=== PATIENT | female | born 1935 | race Caucasian/White ===

== ENCOUNTER 2017-01-15 08:03 | Day surgery (SDC) | payer MEDICARE ==
[2017-01-15] MEDS ORDERED: HYDROmorphone 1 MG/ML 1 ML SYRINGE IVP PRN (08:26)
[2017-01-15] MEDS ORDERED: ALPRAZolam 0.25 MG TAB PO ONE (08:26)
[2017-01-15 08:44] VITALS: RESP 20
[2017-01-15 09:36] LABS: Mean Platelet Volume 8.5
[2017-01-15 09:55] LABS: INR 1.1 (<1.1); Prothrombin Time 11.3 sec (9.0-12.0)
[2017-01-15] MEDS ORDERED: SODIUM CHLORIDE 0.9% 250 ML IV ONE (10:05)
[2017-01-15] MEDS: fentaNYL (PF) 50 MCG/ML 2 ML AMP IV ONE ×2 (10:16→10:57)
[2017-01-15] MEDS ORDERED: LIDOCAINE 2% INJ 20 MG/ML SQ ONE ×2 (10:28)
[2017-01-15 11:24] LABS: Glucose,Whole Blood 243 mg/dL (75-99)
--- NOTE | 2017-01-15 12:04 | IR ---
EXAMINATION TYPE: 3-D imaging guided liver biopsy DATE OF EXAM: 01/15/2017 11:57 AM COMPARISON: NONE HISTORY: Colon and liver masses FINDINGS: Procedure was discussed with the patient, the risks complications, and benefits were discussed. Any q uestions answered. Informed consent was obtained. Patient was placed supine on the fluoroscopic table prepped and draped in the usual sterile fashion. 3-D imaging guided system was used for liver biopsy. Utilizing a 22-gauge Chiba needle 4 passes were made into the liver. Pathology confirmed adequate diony ple. Patient was stable throughout the procedure and stable upon discharge from Department of radiolo gy. All elements of maximal barrier and sterile technique were utilized. Fluoroscopy of 2.1 minute utilized. IMPRESSION: 1. Successful 3-D guided imaging biopsy of the liver.
[2017-01-15 15:29] VITALS: BP 98/52; PULSE 62; TEMP 98.2
== END 2017-01-15 15:15 | disposition home or self-care (01) ==
LOC: RADPROMAIN 08:03
PROVIDERS: ATTEND Internal Medicine Hematology & Oncology
DX: C78.7 Secondary malignant neoplasm of liver and intrahepatic bile duct (principal); C50.412 Malignant neoplasm of upper-outer quadrant of left female breast
CPT/HCPCS: 47000; 76377; 88305; 88173; 85049; 85610; 88342; 88341; 36415; J2001; J3010

== ENCOUNTER 2017-01-16 06:59 | Day surgery (SDC) | payer MEDICARE ==
[2017-01-16] MEDS ORDERED: LACTATED RINGERS 1,000 ML IV ONE (07:06)
[2017-01-16 07:23] VITALS: RESP 16; TEMP 97.9
[2017-01-16 07:28] LABS: Glucose,Whole Blood 197 mg/dL (75-99)
[2017-01-16] MEDS ORDERED: LACTATED RINGERS 1,000 ML IV SCH (07:28)
[2017-01-16] MEDS ORDERED: LIDOCAINE 1% INJ 10MG/ML (20 ML MDV) ONE (07:37)
[2017-01-16] MEDS ORDERED: PROPOFOL 10 MG/ML 20 ML VIAL IV ONE (07:37)
[2017-01-16 08:54] VITALS: PULSE 74
[2017-01-16 09:54] VITALS: BP 104/64
--- NOTE | 2017-01-21 17:03 | P.OP ---
Date of Procedure: 01/21/17 Preoperative Diagnosis: Metastatic colon cancer History of breast cancer Postoperative Diagnosis: Same Procedure(s) Performed: Colonoscopy with biopsy and tattoo using Heather ink Implants: Anesthesia: MAC Surgeon: Carole Mclean Estimated Blood Loss (ml): 5 Pathology: other (Cecal mass) Disposition: PACU Indications for Procedure: 81 years old female with prior history of breast cancer presents with weight loss and loss of appetite. Computed tomography scan showed a large cecal mass and multiple metastatic deposits in the liver which were biopsied. Informed consent obtained and patient elected to undergo colonoscopy with biopsy and Heather Ink tattoo. Informed consent obtained and patient elected to undergo the procedure Operative Findings: 1. Sigmoid diverticulosis 2. Large cecal mass 3. 2 adjacent polyps in ascending colon Description of Procedure: The patient was brought to the endoscopy suite and placed in lateral decubitus position. IV sedation was given as per anesthesia team. Patient was on continuous vitals and pulse oximetry monitoring throughout the procedure. A timeout was performed to verify correct patient and correct procedure. Perianal examination did not show any external hemorrhoids. Digital rectal examination was performed. No masses or gross blood. A well-lubricated Olympus colonoscope was passed per rectally and was gradually advanced . Colon was extremely tortuous and patient was placed in supine position and then pediatric colonoscope was used to maneuver around redundant and tortuous sigmoid colon beyond splenic flexure, transverse colon, hepatic flexure and cecum. There was a large mass noted in the cecum which had bosselated appearance and occupied 80% of the cecum lumen. The ileocecal valve was not visualized . Additional 2 polyps noted 1 cm distal to large cecum mass. Multiple biopsies were taken using cold biopsy forceps. Heather ink was injected at the base of the cecum mass and abscess and polyp. The colonoscope was gradually withdrawn inspecting all the mucosal surfaces. Bowel prep was good. No polyps, masses, AV malformations noted. Sigmoid diverticulosis noted without any evidence of acute diverticulitis. The scope was gradually withdrawn and retroflexed in the rectum . Grade 1 internal hemorrhoids seen. Total withdrawal time was greater than 20 minutes . Patient tolerated the procedure well and was taken to post anesthesia care unit in stable condition. PATHOLOGY: COLON, CECUM, BIOPSY: FRAGMENTS OF ADENOMA.
--- NOTE | 2017-02-18 15:17 | P.GSHP ---
History of Present Illness H&P Date: 01/16/17 Chief Complaint: Metastatic colon cancer 81 years old female presented with weight loss and anemia. Ultrasound and computed tomography scan showed multiple liver masses and also a mass in the cecum. Patient is status post lumpectomy and radiation after left breast cancer surgery in 2016. Patient today presents for colonoscopy with possible biopsy Past Medical History Past Medical History: Cancer, Diabetes Mellitus, GERD/Reflux, Hearing Disorder / Deafness, Hyperlipidemia, Hypertension, Osteoarthritis (OA) Additional Past Medical History / Comment(s): recent dx. breast cancer left breast History of Any Multi-Drug Resistant Organisms: None Reported Past Surgical History: Back Surgery, Coronary Bypass/CABG, Heart Catheterization , Hysterectomy, Joint Replacement, Tonsillectomy Additional Past Surgical History / Comment(s): quad bypass 2006, left knee replaced Past Anesthesia/Blood Transfusion Reactions: No Reported Reaction Past Psychological History: Depression Smoking Status: Former smoker Past Alcohol Use History: None Reported Additional Past Alcohol Use History / Comment(s): quit smoking in the 's, smoked for 15 yrs. Past Drug Use History: None Reported - Past Family History Mother Family Medical History: No Reported History Medications and Allergies Home Medications Medication Instructions Recorded Confirmed Type Metoprolol Tartrate [Lopressor] 25 mg PO DAILY 02/12/16 02/17/17 History PARoxetine [Paxil] 20 mg PO DAILY 02/12/16 02/17/17 History Simvastatin [Zocor] 80 mg PO HS 02/12/16 02/17/17 History Ubidecarenone [Co Q-10] 300 mg PO DAILY 02/12/16 02/17/17 History metFORMIN HCL [Glucophage] 500 mg PO DAILY 02/12/16 02/17/17 History traZODone HCL [Desyrel] 100 mg PO HS 02/12/16 02/17/17 History Anastrozole [Arimidex] 1 mg PO DAILY 01/13/17 02/17/17 History Cetirizine HCl [Zyrtec] 10 mg PO DAILY 01/13/17 02/17/17 History Ranitidine HCl [Zantac] 150 mg PO HS 01/13/17 02/17/17 History Bevacizumab [Avastin] 0 mg IV Q21D 02/17/17 02/17/17 History HYDROcodone/APAP 10-325MG [[place] 1 tab PO Q4HR PRN 02/17/17 02/17/17 History 10-325] Xeloda(Unknown Dose) 1 tab PO BID 02/17/17 History Allergies Allergy/AdvReac Type Severity Reaction Status Date / Time ibuprofen Allergy Anaphylaxis Verified 02/17/17 09:22 Latex, Natural Rubber AdvReac rizzo skin Verified 02/17/17 09:22 Surgical - Exam Vital Signs Temp Pulse Resp BP Pulse Ox 97.9 F 78 16 128/70 96 01/16/17 07:21 01/16/17 07:21 01/16/17 07:21 01/16/17 07:21 01/16/17 07:21 General: Patient is alert and oriented to time, place and person and cooperative with exam. HEENT: No pallor, no icterus, Chest: Bilateral equal breath sounds present. No wheezes, no crackles. Cardiovascular: Regular rate and rhythm. Abdomen: Soft, nontender, nondistended. No right upper quadrant tenderness. Integumentary: Bilateral lower extremity chronic venous dermatitis. No active ulcers or discharge. Neurologic: Cranial nerves II-XII intact. Strength upper and lower extremities 5/5. No focal neurologic deficits. Gait is normal. Assessment and Plan (1) Liver metastasis Status: Acute Plan: 1. 81 years old female presenting with elevated CEA, status post FNA of the liver lesions showing malignancy of colorectal origin 2. Colonoscopy with biopsy. 3. Informed consent obtained and patient elected to undergo colonoscopy with biopsy
== END 2017-01-16 10:25 | disposition home or self-care (01) ==
LOC: ORWHC2ENDO 06:59
PROVIDERS: ATTEND Surgery
DX: D12.0 Benign neoplasm of cecum (principal); K63.5 Polyp of colon; K57.30 Diverticulosis of large intestine without perforation or abscess without bleeding; K64.8 Other hemorrhoids; Q43.8 Other specified congenital malformations of intestine; C18.9 Malignant neoplasm of colon, unspecified; C78.7 Secondary malignant neoplasm of liver and intrahepatic bile duct; Z85.3 Personal history of malignant neoplasm of breast; Z92.3 Personal history of irradiation; E11.9 Type 2 diabetes mellitus without complications; K21.9 Gastro-esophageal reflux disease without esophagitis; H91.90 Unspecified hearing loss, unspecified ear; E78.5 Hyperlipidemia, unspecified; I10 Essential (primary) hypertension; M19.90 Unspecified osteoarthritis, unspecified site; Z95.1 Presence of aortocoronary bypass graft; F32.9 Major depressive disorder, single episode, unspecified; Z79.84 Long term (current) use of oral hypoglycemic drugs; Z79.899 Other long term (current) drug therapy; Z88.6 Allergy status to analgesic agent; Z87.891 Personal history of nicotine dependence
CPT/HCPCS: 88305; 45380; 45381; J2001; J2704; 44404

== ENCOUNTER 2017-02-20 08:52 | Day surgery (SDC) | payer MEDICARE ==
[2017-02-17 10:12] VITALS: BMI 28.3
[~2017-02-20 08:52] MED LIST: DEXAMETHASONE SOD PHOSPHATE 10 MG/ML 1 ML VIAL IV ONE; LACTATED RINGERS 1,000 ML IV SCH; LIDOCAINE 1% 20 ML VIAL (10MG/ML) FOR IV START INTRADERMA PRN; ceFAZolin 2 GM in SODIUM CHLORIDE 0.9% 100 ML IVPB ONE
[2017-02-20 09:32] VITALS: RESP 16; TEMP 97.6
[2017-02-20 09:44] LABS: Glucose,Whole Blood 159 mg/dL (75-99)
[2017-02-20] MEDS ORDERED: fentaNYL (PF) 50 MCG/ML 2 ML AMP IVP ONE ×2 (10:33→10:46)
[2017-02-20] MEDS ORDERED: fentaNYL (PF) 50 MCG/ML 2 ML AMP ONE (10:48)
[2017-02-20] MEDS ORDERED: MIDAZOLAM 2 MG/2 ML VIAL ONE (10:48)
[2017-02-20] MEDS ORDERED: BUPIVACAINE (PF) 0.25% 30 ML VIAL SQ ONE (11:05)
--- NOTE | 2017-02-20 12:03 | FL ---
EXAMINATION TYPE: FL guided central line placemt DATE OF EXAM: 02/20/2017 CLINICAL HISTORY: Port-A-Cath insertion TECHNIQUE: Fluoroscopy. COMPARISON: None. FINDINGS: Fluoroscopic guidance was provided during Port-A-Cath insertion procedure performed by Dr. Mclean. A total of 6 seconds of fluoroscopic time was utilized during the procedure and single in traoperative spot images acquired. Image acquired shows right internal jugular Mediport catheter with tip in SVC. Overlying sternal wires are present. IMPRESSION: As Above.
--- NOTE | 2017-02-20 12:15 | P.OP ---
Date of Procedure: 02/20/17 Preoperative Diagnosis: Metastatic colon cancer History of left breast cancer status post lumpectomy and radiation Postoperative Diagnosis: Same Procedure(s) Performed: Right internal jugular 8-Amharic Mediport placement under fluoroscopic and SonoSite guidance Implants: Power[employer] Ref#[id number] Anesthesia: MAC, local Surgeon: Carole Mclean Pathology: none sent Condition: stable Disposition: PACU Indications for Procedure: 81 years old female presents for Mediport placement for chemotherapy for metastatic colon cancer. Informed consent obtained and patient elected to undergo the procedure Operative Findings: Description of Procedure: The patient was brought to the operating room and placed in supine position with both arms tucked. A footboard was placed. Chlorhexidine was used to prep the neck followed by application of sterile drapes and an Ioban dressing . A timeout was performed to verify correct patient and correct procedure. Patient was confirmed to receive perioperative IV antibiotics and VTE prophylaxis. An ultrasound was performed of the right neck to identify the carotid artery and internal jugular vein. The internal jugular vein was compressible and patent . Photodocumentation was made. Local anesthetic was infiltrated to create a field block. Seldinger technique was used and the internal jugular vein was accessed under direct ultrasound guidance. There was good backflow of dark venous blood. The guidewire was inserted and fluoroscopic images obtained to confirm the tip in SVC. The needle was removed followed by insertion of a dilator peel-away sheath. Local anesthetic was infiltrated along the inferior aspect of the right clavicle. A 2.5 cm skin incision was made and dissection was carried up to the pectoralis major muscle. A pocket was created for the port. The catheter tubing was connected to the port using the conector after flushing both the port and the catheter with normal saline. The tunneling device was connected to the end of the catheter and after placement of the port in the subcutaneous pocket the tunneling device was passed from the lower incision to the counter incision in the neck. The catheter was measured at the junction of SVC and right atrium. The inner cannula of the peel-away sheath was removed and catheter was gradually inserted. The peel-away sheath was gradually removed. Fluoroscopic image confirmed the tip of the catheter at the junction of SVC and right atrium. There was no kink, fold or torsion of the catheter and the port. The Beaver needle was used to access the port and easy backflow was obtained. This was flushed with 10 mL of normal saline and 10 mL of Hep-Lock was inserted. The skin incision was closed in 3 layers using 3-0 Vicryl interrupted stitches and a running suture of 4-0 Monocryl. Counter incision in the neck was also closed using 3-0 Vicryl followed by 4-0 Monocryl. Dermabond skin glue was applied followed by Telfa and Tegaderm dressing. The sponge, instrument and needle count were correct -2 Patient tolerated the procedure well and was taken to post anesthesia care unit in stable condition Final chest x-ray showed the tip of the catheter in SVC and no pneumothorax. Total fluoroscopic time was 6 seconds
[2017-02-20 12:29] LABS: Glucose,Whole Blood 191 mg/dL (75-99)
[2017-02-20] MEDS ORDERED: HYDROmorphone 1 MG/ML 1 ML SYRINGE IVP ONE ×3 (12:33→13:00)
[2017-02-20 13:15] VITALS: PULSE 64
--- NOTE | 2017-02-20 13:39 | XR ---
EXAMINATION TYPE: XR chest 1V confirm line [facility] DATE OF EXAM: 02/20/2017 COMPARISON: NONE HISTORY: Mediport placement. TECHNIQUE: Single AP portable frontal upright view of the chest is obtained. FINDINGS: There is right internal jugular Mediport catheter with tip likely at brachiocephalic conflu ence. Post CABG changes with mediastinal clips and sternal wires is present. Underlying emphysematous change is felt present. There is no focal air space opacity, pleural effusion, or pneumothorax seen. The cardiac silhouette size is enlarged with atherosclerotic thoracic aorta. The osseous structur es are demineralized. IMPRESSION: Right internal jugular Mediport catheter with tip at brachiocephalic confluence, no evid ence of pneumothorax after catheter placement.
[2017-02-20 13:40] VITALS: BP 115/67
== END 2017-02-20 14:22 | disposition home or self-care (01) ==
LOC: OR 08:52
PROVIDERS: ATTEND Surgery
DX: C18.9 Malignant neoplasm of colon, unspecified (principal); C78.7 Secondary malignant neoplasm of liver and intrahepatic bile duct; I25.10 Atherosclerotic heart disease of native coronary artery without angina pectoris; I10 Essential (primary) hypertension; Z95.1 Presence of aortocoronary bypass graft; G47.33 Obstructive sleep apnea (adult) (pediatric); E11.9 Type 2 diabetes mellitus without complications; Z79.84 Long term (current) use of oral hypoglycemic drugs; F32.9 Major depressive disorder, single episode, unspecified; Z85.3 Personal history of malignant neoplasm of breast; Z79.890 Hormone replacement therapy; Z79.899 Other long term (current) drug therapy; Z88.8 Allergy status to other drugs, medicaments and biological substances; Z91.040 Latex allergy status
CPT/HCPCS: 77001; 36561; 76937; C1788; J2250; J1100; J0690; J3010; J1170; J1642

== ENCOUNTER 2017-03-13 13:07 | Emergency (ER) | payer MEDICARE ==
[2017-03-13] MEDS ORDERED: ONDANSETRON 4 MG/2 ML VIAL IVP STA (13:31)
[2017-03-13] MEDS ORDERED: HYDROmorphone 1 MG/ML 1 ML SYRINGE IVP STA (13:31)
[2017-03-13] MEDS ORDERED: SODIUM CHLORIDE 0.9% 500 ML IV STA (13:31)
[2017-03-13] MEDS ORDERED: SODIUM CHLORIDE 0.9% 1,000 ML IV STA (13:31)
--- NOTE | 2017-03-13 13:40 | ED ---
Abdominal Pain HPI - General Chief Complaint: Abdominal Pain Stated Complaint: pain/cancer patient Time Seen by Provider: 03/13/17 13:23 Source: patient, family, RN notes reviewed Mode of arrival: ambulatory Limitations: no limitations - History of Present Illness Initial Comments: This is a 81-year-old female with a history of cecal cancer that is late stage and inoperable who has been getting chemotherapy and was sent to the emergency department from the [facility] center for evaluation of abdominal pain with nausea. She apparently has had had diarrhea and abdominal pain. She received IV hydration statement sent here for any further workup. She has been complaining of some rectal pain. She has had pain medication which does not help the pain is 8/10 severity she states is more in her lower abdomen. She does have a history of sludge in her gallbladder. This was also a concern. MD Complaint: abdominal pain - Related Data Home Medications Medication Instructions Recorded Confirmed Metoprolol Tartrate [Lopressor] 25 mg PO DAILY 02/12/16 03/13/17 PARoxetine [Paxil] 20 mg PO DAILY 02/12/16 03/13/17 Ubidecarenone [Co Q-10] 300 mg PO DAILY 02/12/16 03/13/17 metFORMIN HCL [Glucophage] 500 mg PO DAILY 02/12/16 03/13/17 traZODone HCL [Desyrel] 100 mg PO HS 02/12/16 03/13/17 Anastrozole [Arimidex] 1 mg PO DAILY 01/13/17 03/13/17 Cetirizine HCl [Zyrtec] 10 mg PO DAILY 01/13/17 03/13/17 Ranitidine HCl [Zantac] 150 mg PO HS 01/13/17 03/13/17 HYDROcodone/APAP 10-325MG [[place] 1 tab PO Q4HR PRN 02/17/17 03/13/17 10-325] Xeloda(Unknown Dose) 1 tab PO BID 02/17/17 03/13/17 Dexamethasone [Hexadrol] 4 mg PO BID 03/13/17 03/13/17 Diphenoxylate HCl/Atropine 2 tab PO QID PRN 03/13/17 03/13/17 [Lomotil 2.5-0.025 mg Tablet] Insulin Glargine [Lantus] 5 unit SQ HS 03/13/17 03/13/17 Lidocaine-Prilocaine Cream [[place] 1 applic TOPICAL DAILY PRN 03/13/17 03/13/17 Cream 2.5%/2.5%] fentaNYL 25MCG/HR PATCH [Duragesic 25 mcg TRANSDERM Q48H 03/13/17 03/13/17 25MCG/HR] Allergies Allergy/AdvReac Type Severity Reaction Status Date / Time ibuprofen Allergy Anaphylaxis Verified 03/13/17 14:27 Latex, Natural Rubber AdvReac rizzo skin Verified 03/13/17 14:27 Review of Systems ROS Statement: Those systems with pertinent positive or pertinent negative responses have been documented in the HPI. ROS Other: All systems not noted in ROS Statement are negative. Past Medical History Past Medical History: Cancer, Diabetes Mellitus, GERD/Reflux, Hearing Disorder / Deafness, Hyperlipidemia, Hypertension, Osteoarthritis (OA) Additional Past Medical History / Comment(s): dx. breast cancer left breast, new dx. colon cancer w/liver mets History of Any Multi-Drug Resistant Organisms: None Reported Past Surgical History: Back Surgery, Coronary Bypass/CABG, Heart Catheterization , Hysterectomy, Joint Replacement, Tonsillectomy Additional Past Surgical History / Comment(s): quad bypass 2006, left knee replaced Past Anesthesia/Blood Transfusion Reactions: No Reported Reaction Past Psychological History: Depression Smoking Status: Former smoker Past Alcohol Use History: None Reported Past Drug Use History: None Reported - Past Family History Mother Family Medical History: No Reported History General Exam - General Exam Comments Initial Comments: This is a well-developed well-nourished awake alert oriented 3 female Limitations: no limitations General appearance: alert, in no apparent distress Head exam: Present: atraumatic, normocephalic, normal inspection Eye exam: Present: normal appearance, PERRL, EOMI. Absent: scleral icterus, conjunctival injection, periorbital swelling ENT exam: Present: mucous membranes dry Neck exam: Present: normal inspection. Absent: tenderness, meningismus, lymphadenopathy Respiratory exam: Present: normal lung sounds bilaterally. Absent: respiratory distress, wheezes, rales, rhonchi, stridor Cardiovascular Exam: Present: normal rhythm, bradycardia, normal heart sounds. Absent: systolic murmur, diastolic murmur, rubs, gallop, clicks GI/Abdominal exam: Present: soft, tenderness (Tenderness palpation of the lower abdomen no guarding rebound masses or bruits), normal bowel sounds. Absent: distended, guarding, rebound, rigid Rectal exam: Present: deferred Extremities exam: Present: normal inspection, full ROM, normal capillary refill. Absent: tenderness, pedal edema, joint swelling, calf tenderness Back exam: Present: normal inspection Neurological exam: Present: alert, oriented X3, CN II-XII intact Psychiatric exam: Present: normal affect, normal mood Skin exam: Present: warm, dry, intact, normal color. Absent: rash Course Vital Signs 03/13/17 03/13/17 03/13/17 13:09 14:32 17:06 Temperature 97.3 F L 98.5 F Pulse Rate 51 L 56 L 61 Respiratory 17 16 16 Rate Blood Pressure 125/62 135/60 162/71 O2 Sat by Pulse 98 98 100 Oximetry Medical Decision Making - Medical Decision Making I did discuss the findings with the patient family patient feels much improved and will at to go home she will be discharged she was encouraged to increase oral fluids and calorie intake. She will follow-up with her doctor and return when necessary - Lab Data Result diagrams: 03/13/17 14:15 03/13/17 14:15 Lab Results 03/13/17 03/13/17 03/13/17 Range/Units 14:15 14:15 14:15 WBC 6.6 (3.8-10.6) k/uL RBC 3.49 L (3.80-5.40) m/uL Hgb 9.7 L (11.4-16.0) gm/dL Hct 30.3 L (34.0-46.0) % MCV 87.0 (80.0-100.0) fL MCH 27.8 (25.0-35.0) pg MCHC 32.0 (31.0-37.0) g/dL RDW 29.5 H (11.5-15.5) % Plt Count 330 (150-450) k/uL Neutrophils % 83 % Lymphocytes % 14 % Monocytes % 3 % Eosinophils % 0 % Basophils % 0 % Neutrophils # 5.5 (1.3-7.7) k/uL Lymphocytes # 0.9 L (1.0-4.8) k/uL Monocytes # 0.2 (0-1.0) k/uL Eosinophils # 0.0 (0-0.7) k/uL Basophils # 0.0 (0-0.2) k/uL Hypochromasia Moderate Anisocytosis Marked Microcytosis Slight Macrocytosis Moderate Sodium 138 (137-145) mmol/L Potassium 3.5 (3.5-5.1) mmol/L Chloride 105 (98-107) mmol/L Carbon Dioxide 26 (22-30) mmol/L Anion Gap 7 mmol/L BUN 9 (7-17) mg/dL Creatinine 0.50 L (0.52-1.04) mg/dL Est GFR (MDRD) Af Amer >60 (>60 ml/min/1.73 sqM) Est GFR (MDRD) Non-Af >60 (>60 ml/min/1.73 sqM) Glucose 149 H (74-99) mg/dL Plasma Lactic Acid G[place]ardo (0.7-2.0) mmol/L Calcium 8.1 L (8.4-10.2) mg/dL Total Bilirubin 0.4 (0.2-1.3) mg/dL AST 13 L (14-36) U/L ALT 20 (9-52) U/L Alkaline Phosphatase 127 H (38-126) U/L Total Creatine Kinase <20 L (30-135) U/L CK-MB (CK-2) 0.3 (0.0-2.4) ng/mL CK-MB (CK-2) Rel Index 0.0 Troponin I <0.012 (0.000-0.034) ng/mL Total Protein 4.8 L (6.3-8.2) g/dL Albumin 2.5 L (3.5-5.0) g/dL Amylase <30 L (30-110) U/L Lipase 19 L (23-300) U/L Urine Color Urine Appearance (Clear) Urine pH (5.0-8.0) Ur Specific [place] (1.001-1.035) Urine Protein (Negative) Urine Glucose (UA) (Negative) Urine Ketones (Negative) Urine Blood (Negative) Urine Nitrite (Negative) Urine Bilirubin (Negative) Urine Urobilinogen (<2.0) mg/dL Ur Leukocyte Esterase (Negative) Urine RBC (0-5) /hpf Urine WBC (0-5) /hpf Urine Bacteria (None) /hpf Cellular Casts (0) /lpf Urine Mucus (None) /hpf 03/13/17 03/13/17 Range/Units 14:15 17:02 WBC (3.8-10.6) k/uL RBC (3.80-5.40) m/uL Hgb (11.4-16.0) gm/dL Hct (34.0-46.0) % MCV (80.0-100.0) fL MCH (25.0-35.0) pg MCHC (31.0-37.0) g/dL RDW (11.5-15.5) % Plt Count (150-450) k/uL Neutrophils % % Lymphocytes % % Monocytes % % Eosinophils % % Basophils % % Neutrophils # (1.3-7.7) k/uL Lymphocytes # (1.0-4.8) k/uL Monocytes # (0-1.0) k/uL Eosinophils # (0-0.7) k/uL Basophils # (0-0.2) k/uL Hypochromasia Anisocytosis Microcytosis Macrocytosis Sodium (137-145) mmol/L Potassium (3.5-5.1) mmol/L Chloride (98-107) mmol/L Carbon Dioxide (22-30) mmol/L Anion Gap mmol/L BUN (7-17) mg/dL Creatinine (0.52-1.04) mg/dL Est GFR (MDRD) Af Amer (>60 ml/min/1.73 sqM) Est GFR (MDRD) Non-Af (>60 ml/min/1.73 sqM) Glucose (74-99) mg/dL Plasma Lactic Acid [place] 1.1 (0.7-2.0) mmol/L Calcium (8.4-10.2) mg/dL Total Bilirubin (0.2-1.3) mg/dL AST (14-36) U/L ALT (9-52) U/L Alkaline Phosphatase (38-126) U/L Total Creatine Kinase (30-135) U/L CK-MB (CK-2) (0.0-2.4) ng/mL CK-MB (CK-2) Rel Index Troponin I (0.000-0.034) ng/mL Total Protein (6.3-8.2) g/dL Albumin (3.5-5.0) g/dL Amylase (30-110) U/L Lipase (23-300) U/L Urine Color Yellow Urine Appearance Clear (Clear) Urine pH 5.5 (5.0-8.0) Ur Specific [place] 1.030 (1.001-1.035) Urine Protein 1+ H (Negative) Urine Glucose (UA) 2+ H (Negative) Urine Ketones Negative (Negative) Urine Blood Negative (Negative) Urine Nitrite Negative (Negative) Urine Bilirubin Negative (Negative) Urine Urobilinogen <2.0 (<2.0) mg/dL Ur Leukocyte Esterase Negative (Negative) Urine RBC 1 (0-5) /hpf Urine WBC 2 (0-5) /hpf Urine Bacteria Rare H (None) /hpf Cellular Casts 1 (0) /lpf Urine Mucus Rare H (None) /hpf - Radiology Data Radiology results: report reviewed (I did review the imaging and reports including CAT scan there appears be nothing new as far as pathology no evidence of any obstruction she does have cecal mass with evidence of metastatic disease to the liver which is known by the family and patient.), image reviewed Disposition Clinical Impression: Diarrhea, Spastic intestine, Dehydration, Cecal cancer Disposition: HOME SELF-CARE Condition: Good Instructions: Dehydration (ED) Referrals: Alex Montgomery MD [Primary Care Provider] - 1-2 days
[2017-03-13 14:34] VITALS: RESP 16
[2017-03-13 14:41] LABS: Anisocytosis Marked; Basophils % (A) 0 %; CH 27.2; CHCM 30.9; Eosinophils % (A) 0 %; HCT 30.3 % (34.0-46.0); HDW 3.21; HGB 9.7 gm/dL (11.4-16.0); Hypochromasia Moderate; Luc # (Auto) 0.04; Luc % (Auto) 1; Lymphocytes # (A) 0.9 k/uL (1.0-4.8); Lymphocytes % (A) 14 %; MCH 27.8 pg (25.0-35.0); Macrocytosis Moderate; Mean Platelet Volume 7.3; Microcytosis Slight; Monocytes # (A) 0.2 k/uL (0-1.0); Monocytes % (A) 3 %; Neutrophils # (A) 5.5 k/uL (1.3-7.7); Neutrophils % (A) 83 %; RBC 3.49 m/uL (3.80-5.40); WBC 6.6 k/uL (3.8-10.6); WBC (Perox) 6.73
[2017-03-13 14:42] LABS: ALT 20 U/L (9-52); AST 13 U/L (14-36); Alkaline Phosphatase 127 U/L (38-126); Amylase <30 U/L (30-110); Anion Gap 7 mmol/L; Blood Urea Nitrogen 9 mg/dL (7-17); Calcium 8.1 mg/dL (8.4-10.2); Carbon Dioxide 26 mmol/L (22-30); Chloride 105 mmol/L (98-107); Glucose 149 mg/dL (74-99); Non-African American GFR(MDRD) >60 (>60 ml/min/1.73 sqM); Potassium 3.5 mmol/L (3.5-5.1); Sodium 138 mmol/L (137-145); Total Bilirubin 0.4 mg/dL (0.2-1.3); Total Protein 4.8 g/dL (6.3-8.2)
[2017-03-13 14:43] LABS: RDW 29.5 % (11.5-15.5)
--- NOTE | 2017-03-13 14:50 | XR ---
EXAMINATION TYPE: XR KUB DATE OF EXAM: 03/13/2017 CLINICAL DATA: 81 year-old female with abdominal pain, [facility] COMPARISON: None FINDINGS: Retained epicardial pacer leads are present. Surgical clips projecting over the left base. No evidence for free intraperitoneal air. A few small air-fluid levels are noted within the right hemicolon. Hepatic flexure appears mildly dil ated at 7.2 cm. No dilated small bowel loops. No significant stool burden. No suspicious calcification seen. IMPRESSION: 1. Overall nonobstructive bowel gas pattern. No free air. 2. Dilated colon at the level of the hepatic flexure and some tiny air-fluid levels. Correlate for po ssible ileus. Follow-up may be helpful.
[2017-03-13 14:58] LABS: Creatine Kinase <20 U/L (30-135)
[2017-03-13 15:11] LABS: Creatine Kinase MB 0.3 ng/mL (0.0-2.4); Troponin I <0.012 ng/mL (0.000-0.034)
[2017-03-13] MEDS ORDERED: RX INFO: IV CONTRAST WAS GIVEN 1 EACH MISC MISCELLANE PRN (15:51)
[2017-03-13 17:14] LABS: Appearance,Urine Clear (Clear); Bacteria,Urine Rare /hpf; Bilirubin,Urine Negative (Negative); Glucose,Urine (UA) 2+ (Negative); Ketones,Urine Negative (Negative); Leukocyte Esterase,Urine Negative (Negative); Mucus,Urine Rare /hpf; Nitrite,Urine Negative (Negative); PH, Urine 5.5 (5.0-8.0); Particle Count 2522; Protein,Urine 1+ (Negative); RBC,Urine 1 /hpf (0-5); UA Billing (MACRO vs. MICRO) MICRO; Urobilinogen,Urine <2.0 mg/dL (<2.0); WBC,Urine 2 /hpf (0-5)
--- NOTE | 2017-03-13 17:22 | CT ---
EXAMINATION TYPE: CT abdomen pelvis w con DATE OF EXAM: 03/13/2017 COMPARISON: Outside CT dated February 03, 2017 HISTORY: Patient complains of generalized abdominal pain, dysuria, and diarrhea. CT DLP: 623.1 mGycm. Automated exposure control for dose reduction was used. TECHNIQUE: Helical acquisition of images was performed from the lung bases through the pelvis. CONTRAST: Performed without Oral Contrast and with IV Contrast, patient injected with 100 mL of Omnip aque 300. FINDINGS: The prior CT scan from February 03, 2017 was obtained without intravenous contrast, but with oral contrast . LUNG BASES: No significant pulmonary or pleural abnormality is appreciated. Coronary calcifications a nd a prominent mitral valve plane cortical calcifications redemonstrated. LIVER/GB: There is redemonstration of multifocal hypodense lesions throughout the left and right hepa tic lobes, compatible with metastatic neoplasm. There is no biliary tree dilation. The portal venous system is widely patent. HOLLOW VISCERA: There is no bowel obstruction. No pneumatosis or pneumoperitoneum. There is indistinc tness in the cecum/ascending colon presently, there was evidence of a cecal mass on the prior study w hich was obtained with oral contrast. There is a descending colon lymph nodes geographically, consist ent with metastatic. There is no bowel obstruction. PERITONEAL CAVITY: There are no abnormal fluid collections. PANCREAS: No significant abnormality is seen.No pancreatic ductal dilation. SPLEEN: No significant abnormality is seen. ADRENALS: No significant abnormality is seen. KIDNEYS: No urinary tract obstruction. Multifocal simple renal cysts redemonstrated. REPRODUCTIVE ORGANS: No significant abnormality is seen URINARY BLADDER: No significant abnormality is seen. PELVIC ADENOPATHY: None visualized. OSSEOUS STRUCTURES: No significant abnormality is seen. VASCULATURE: Sclerotic changes throughout the arterial anatomy. Venous structures unremarkable. IMPRESSION: 1. LARGE MULTIFOCAL RIGHT AND LEFT HEPATIC METASTATIC NEOPLASM. 2. EVIDENT PERICECAL MASS. 3. THE COMPARISON CT EXTENDS HIGH ENOUGH TO SHOW A RETROAREOLAR 3 CM ILL-DEFINED LEFT BREAST MASS.
[2017-03-13 18:11] VITALS: BP 149/67; PULSE 64; TEMP 97.4
== END 2017-03-13 18:27 | disposition home or self-care (01) ==
LOC: EC 13:07
DX: C18.0 Malignant neoplasm of cecum (principal); C78.7 Secondary malignant neoplasm of liver and intrahepatic bile duct; K58.0 Irritable bowel syndrome with diarrhea; E86.0 Dehydration; R00.1 Bradycardia, unspecified; R11.0 Nausea; I10 Essential (primary) hypertension; E11.9 Type 2 diabetes mellitus without complications; K21.9 Gastro-esophageal reflux disease without esophagitis; F32.9 Major depressive disorder, single episode, unspecified; Z87.891 Personal history of nicotine dependence; Z79.4 Long term (current) use of insulin; Z79.84 Long term (current) use of oral hypoglycemic drugs; Z79.899 Other long term (current) drug therapy; Z88.6 Allergy status to analgesic agent; Z91.040 Latex allergy status; Z85.3 Personal history of malignant neoplasm of breast
CPT/HCPCS: 36415; 80053; 82150; 82550; 82553; 83605; 83690; 84484; 85025; 81001; 74000; 74177; 99284; 96374; 96375 ×2; 96361 ×4; J2405; J1170; Q9967; J1642

== ENCOUNTER 2017-03-19 19:28 | Inpatient (IN) | payer MEDICARE ==
[2017-03-19] MEDS ORDERED: FAMOTIDINE 20 MG/2 ML VIAL IV STA (19:59)
[2017-03-19] MEDS ORDERED: SODIUM CHLORIDE 0.9% 1,000 ML IV STA (19:59)
[2017-03-19] MEDS ORDERED: HYDROmorphone 1 MG/ML 1 ML SYRINGE IVP STA ×2 (19:59→22:03)
--- NOTE | 2017-03-19 20:02 | ED ---
General Adult HPI - General Chief complaint: Recheck/Abnormal Lab/Rx Stated complaint: pain/cancer patient Time Seen by Provider: 03/19/17 19:46 Source: patient, family, RN notes reviewed Mode of arrival: wheelchair Limitations: no limitations - History of Present Illness Initial comments: 81-year-old female presents to the emergency department with a chief complaint of increased pain. Patient suffers from rectal cancer and this is stage IV. Patient takes a fentanyl patch and Dilaudid at home for pain her last visit has not been helping. He see her pain has slowly been worsening throughout this period of time and she recently was put on Dilaudid yesterday to help with her pain. She states that it is the pain that she has all the time she is to pain medication is not left finger at this time. She states she is not eating or drinking much today with this because the pain always makes her nauseous. Patient states she just needs something for her pain and some hydration. Patient denies any fever chills with this. Patient denies any other symptoms at this time. Patient denies any recent fever, chills, shortness of breath, chest pain, back pain, nausea vomiting, numbness or tingling, dysuria or hematuria, constipation or diarrhea, headaches or visual changes, or any other current symptoms. - Related Data Home Medications Medication Instructions Recorded Confirmed Metoprolol Tartrate [Lopressor] 25 mg PO DAILY 02/12/16 03/19/17 PARoxetine [Paxil] 20 mg PO HS 02/12/16 03/19/17 traZODone HCL [Desyrel] 100 mg PO HS 02/12/16 03/19/17 Anastrozole [Arimidex] 1 mg PO DAILY 01/13/17 03/19/17 Cetirizine HCl [Zyrtec] 10 mg PO DAILY 01/13/17 03/19/17 Ranitidine HCl [Zantac] 150 mg PO HS 01/13/17 03/19/17 Dexamethasone [Hexadrol] See Taper PO DAILY 03/13/17 03/19/17 Diphenoxylate HCl/Atropine 2 tab PO QID PRN 03/13/17 03/19/17 [Lomotil 2.5-0.025 mg Tablet] Insulin Glargine [Lantus] 5 unit SQ HS 03/13/17 03/19/17 Lidocaine-Prilocaine Cream [Emla 1 applic TOPICAL DAILY PRN 03/13/17 03/19/17 Cream 2.5%/2.5%] fentaNYL 25MCG/HR PATCH [Duragesic 25 mcg TRANSDERM Q48H 03/13/17 03/19/17 25MCG/HR] HYDROmorphone [Dilaudid] 1 tab PO Q3HR PRN 03/19/17 03/19/17 Allergies Allergy/AdvReac Type Severity Reaction Status Date / Time ibuprofen Allergy Anaphylaxis Verified 03/19/17 20:58 Latex, Natural Rubber AdvReac rizzo skin Verified 03/19/17 20:58 Review of Systems ROS Statement: Those systems with pertinent positive or pertinent negative responses have been documented in the HPI. ROS Other: All systems not noted in ROS Statement are negative. Past Medical History Past Medical History: Cancer, Diabetes Mellitus, GERD/Reflux, Hearing Disorder / Deafness, Hyperlipidemia, Hypertension, Osteoarthritis (OA) Additional Past Medical History / Comment(s): dx. breast cancer left breast, new dx. colon cancer w/liver mets History of Any Multi-Drug Resistant Organisms: None Reported Past Surgical History: Back Surgery, Coronary Bypass/CABG, Heart Catheterization , Hysterectomy, Joint Replacement, Tonsillectomy Additional Past Surgical History / Comment(s): quad bypass 2006, left knee replaced Past Anesthesia/Blood Transfusion Reactions: No Reported Reaction Past Psychological History: Depression Smoking Status: Former smoker Past Alcohol Use History: None Reported Past Drug Use History: None Reported - Past Family History Mother Family Medical History: No Reported History General Exam - General Exam Comments Initial Comments: General: The patient is awake and alert, in no distress, and does not appear acutely ill. Eye: Pupils are equal, round and reactive to light, extra-ocular movements are intact; there is normal conjunctiva bilaterally. No signs of icterus. Ears, nose, mouth and throat: There are moist mucous membranes. Neck: The neck is supple, there is no tenderness. Cardiovascular: There is a regular rate and rhythm. No murmur, rub or gallop is appreciated. Respiratory: Lungs are clear to auscultation, respirations are non-labored, breath sounds are equal. No wheezes, stridor, rales, or rhonchi. Gastrointestinal: Soft, non-distended, non-tender abdomen without masses or organomegaly noted. There is no rebound or guarding present. No CVA tenderness. Bowel sounds are unremarkable. Back: There is no tenderness to palpation in the midline. There is no obvious deformity. No rashes noted. Musculoskeletal: Normal ROM, no tenderness, There is no pedal edema. There is no calf tenderness or swelling. Sensation intact. Pulses equal bilaterally 2+. Neurological: CN II-XII intact, There are no obvious motor or sensory deficits. Coordination appears grossly intact. Speech is normal. Skin: Skin is warm and dry and no rashes or lesions are noted. Psychiatric: Cooperative, appropriate mood & affect, normal judgment. Limitations: no limitations Course Vital Signs 03/19/17 03/19/17 19:32 22:03 Temperature 97.1 F L 97.7 F Pulse Rate 52 L 53 L Respiratory 18 16 Rate Blood Pressure 110/55 132/60 O2 Sat by Pulse 97 96 Oximetry Medical Decision Making - Medical Decision Making 81-year-old female presents for increased abdominal pain. She does suffer from rectal cancer and states is exactly like her normal pain.At this time lab work is reviewed. Patient has had minimal improvement with the Dilaudid we will give her another dose. This time we discussed case with Dr. Cochran with like the patient admitted. This time we will admit to Dr. Sher's group who is covering with Dr. garcia and consult follow-up. Patient and family and given the plan. - Lab Data Result diagrams: 03/19/17 20:25 03/19/17 20:25 Lab Results 03/19/17 03/19/17 03/19/17 Range/Units 20:25 20:25 21:30 WBC 6.0 (3.8-10.6) k/uL RBC 4.33 (3.80-5.40) m/uL Hgb 12.6 (11.4-16.0) gm/dL Hct 39.6 (34.0-46.0) % MCV 91.4 (80.0-100.0) fL MCH 29.1 (25.0-35.0) pg MCHC 31.8 (31.0-37.0) g/dL RDW 30.2 H (11.5-15.5) % Plt Count 274 (150-450) k/uL Neutrophils % 89 % Lymphocytes % 9 % Monocytes % 2 % Eosinophils % 0 % Basophils % 0 % Neutrophils # 5.4 (1.3-7.7) k/uL Lymphocytes # 0.5 L (1.0-4.8) k/uL Monocytes # 0.1 (0-1.0) k/uL Eosinophils # 0.0 (0-0.7) k/uL Basophils # 0.0 (0-0.2) k/uL Hypochromasia Slight Anisocytosis Marked Microcytosis Slight Macrocytosis Moderate Sodium 134 L (137-145) mmol/L Potassium 3.8 (3.5-5.1) mmol/L Chloride 101 (98-107) mmol/L Carbon Dioxide 28 (22-30) mmol/L Anion Gap 5 mmol/L BUN 20 H (7-17) mg/dL Creatinine 0.71 (0.52-1.04) mg/dL Est GFR (MDRD) Af Amer >60 (>60 ml/min/1.73 sqM) Est GFR (MDRD) Non-Af >60 (>60 ml/min/1.73 sqM) Glucose 221 H (74-99) mg/dL Calcium 7.9 L (8.4-10.2) mg/dL Phosphorus 3.7 (2.5-4.5) mg/dL Magnesium 1.8 (1.6-2.3) mg/dL Total Bilirubin 0.7 (0.2-1.3) mg/dL AST 19 (14-36) U/L ALT 30 (9-52) U/L Alkaline Phosphatase 126 (38-126) U/L Total Protein 4.4 L (6.3-8.2) g/dL Albumin 2.4 L (3.5-5.0) g/dL Urine Color Yellow Urine Appearance Clear (Clear) Urine pH 6.0 (5.0-8.0) Ur Specific [place] 1.017 (1.001-1.035) Urine Protein Negative (Negative) Urine Glucose (UA) 1+ H (Negative) Urine Ketones Negative (Negative) Urine Blood Negative (Negative) Urine Nitrite Negative (Negative) Urine Bilirubin Negative (Negative) Urine Urobilinogen <2.0 (<2.0) mg/dL Ur Leukocyte Esterase Small H (Negative) Urine RBC 1 (0-5) /hpf Urine WBC 4 (0-5) /hpf Ur Squamous Epith Cells <1 (0-4) /hpf Hyaline Casts 4 H (0-2) /lpf Urine Mucus Rare H (None) /hpf Disposition Clinical Impression: Dehydration, Intractable pain, Nausea, Hyponatremia, Hyperglycemia, Liver metastasis, Cecal cancer Disposition: ADMITTED IP TO THIS HOSP Condition: Stable Referrals: Alex Montgomery MD [Primary Care Provider] - 1-2 days Time of Disposition: 22:12 Decision Date: 03/19/17 Decision Time: 22:13
[2017-03-19 20:39] LABS: Anisocytosis Marked; Basophils % (A) 0 %; CH 28.9; CHCM 31.5; Eosinophils % (A) 0 %; HCT 39.6 % (34.0-46.0); HDW 3.14; HGB 12.6 gm/dL (11.4-16.0); Hypochromasia Slight; Luc # (Auto) 0.02; Luc % (Auto) 0; Lymphocytes # (A) 0.5 k/uL (1.0-4.8); Lymphocytes % (A) 9 %; MCH 29.1 pg (25.0-35.0); MCHC 31.8 g/dL (31.0-37.0); MCV 91.4 fL (80.0-100.0); Macrocytosis Moderate; Mean Platelet Volume 7.3; Microcytosis Slight; Monocytes # (A) 0.1 k/uL (0-1.0); Monocytes % (A) 2 %; Neutrophils # (A) 5.4 k/uL (1.3-7.7); Neutrophils % (A) 89 %; RBC 4.33 m/uL (3.80-5.40); WBC (Perox) 6.13
[2017-03-19 20:49] LABS: ALT 30 U/L (9-52); AST 19 U/L (14-36); Alkaline Phosphatase 126 U/L (38-126); Anion Gap 5 mmol/L; Blood Urea Nitrogen 20 mg/dL (7-17); Calcium 7.9 mg/dL (8.4-10.2); Carbon Dioxide 28 mmol/L (22-30); Chloride 101 mmol/L (98-107); Glucose 221 mg/dL (74-99); Magnesium 1.8 mg/dL (1.6-2.3); Non-African American GFR(MDRD) >60 (>60 ml/min/1.73 sqM); Phosphorous 3.7 mg/dL (2.5-4.5); Potassium 3.8 mmol/L (3.5-5.1); RDW 30.2 % (11.5-15.5); Sodium 134 mmol/L (137-145); Total Bilirubin 0.7 mg/dL (0.2-1.3); Total Protein 4.4 g/dL (6.3-8.2)
--- NOTE | 2017-03-19 20:59 | XR ---
EXAMINATION TYPE: XR abdomen 2V DATE OF EXAM: 03/19/2017 COMPARISON: 03/13/2017 HISTORY: Abdominal pain TECHNIQUE: 3 views FINDINGS: There is no sign of intestinal obstruction or pneumoperitoneum. Fecal pattern is normal. Th ere is no sign of a mass. There are no pathologic calcifications over the kidneys. IMPRESSION: Nonacute abdomen. No adverse change compared to last exam. There is less large bowel dist ention compared to old exam.
[2017-03-19 21:48] LABS: Appearance,Urine Clear (Clear); Bilirubin,Urine Negative (Negative); Glucose,Urine (UA) 1+ (Negative); Ketones,Urine Negative (Negative); Leukocyte Esterase,Urine Small (Negative); Mucus,Urine Rare /hpf; Nitrite,Urine Negative (Negative); Particle Count 1126; Protein,Urine Negative (Negative); RBC,Urine 1 /hpf (0-5); Specific Gravity,Urine 1.017 (1.001-1.035); Squamous Epithelial Cell,Urine <1 /hpf (0-4); UA Billing (MACRO vs. MICRO) MICRO; Urobilinogen,Urine <2.0 mg/dL (<2.0); WBC,Urine 4 /hpf (0-5)
[2017-03-19] MEDS ORDERED: ONDANSETRON 4 MG/2 ML VIAL IVP PRN (22:13)
[2017-03-19] MEDS ORDERED: NALOXONE 0.4 MG/ML 1 ML VIAL IV PRN (22:13)
[2017-03-19] MEDS ORDERED: DIPHENOX-ATROP 2.5-0.025 MG 1 EACH TAB PO PRN (22:15)
[2017-03-19] MEDS ORDERED: HYDROmorphone 2 MG TAB PO PRN (22:15)
[2017-03-19] MEDS ORDERED: LIDOCAINE-PRILOCAINE 2.5-2.5% CREAM 5 GM TUBE TOPICAL PRN (22:15)
[2017-03-20] MEDS ORDERED: INSULIN GLARGINE 100 UNIT/ML 10 ML VIAL SQ ONE (00:34)
[2017-03-20] MEDS: SODIUM CHLORIDE 0.9% 1,000 ML IV SCH ×3 (00:50→22:30)
[2017-03-20] MEDS: traZODone HCL 100 MG TAB PO SCH ×2 (00:51→23:32)
[2017-03-20] MEDS: HYDROmorphone 1 MG/ML 1 ML SYRINGE IV PRN ×6 (00:53→22:35)
[2017-03-20 07:33] LABS: Glucose,Whole Blood 191 mg/dL (75-99)
[2017-03-20] MEDS: ANASTROZOLE 1 MG TAB PO SCH (08:34)
[2017-03-20] MEDS: LORATADINE 10 MG TAB PO SCH (08:34)
[2017-03-20] MEDS ORDERED: METOPROLOL TARTRATE 25 MG TAB PO SCH (09:00)
[2017-03-20 11:07] LABS: Glucose,Whole Blood 166 mg/dL (75-99)
--- NOTE | 2017-03-20 11:13 | P.HPIM ---
History of Present Illness 81-year-old female presents to the emergency department with a chief complaint of increased abdominal sharp pain, diffuse, patient has cecal cancer that is colon cancer stage IV metastatic patient completed radiation therapy and patient underwent surgery for that and patient is status post chemotherapy was not tolerating Xeloda, patient had a CAT scan of the abdomen about 3-4 days ago because of which I'm not repeating a CAT scan. Abdominal pain is probably due to metastatic disease. Patient's fentanyl patch dose will be increased. And patient was having diarrhea about 6 episodes a day which improved at this point of time loss of appetite barely eats anything, patient will will be started on Marinol [place] had to eat and patient is fatigued and decreased activity. Patient denies any cough, runny nose or any focal weakness.. Patient denies any fever chills with this. Patient denies any other symptoms at this time. P Review of Systems REVIEW OF SYSTEMS: CONSTITUTIONAL: No fever, no malaise, no fatigue. HEENT: No recent visual problems or hearing problems. Denied any sore throat. CARDIOVASCULAR: No chest pain, orthopnea, PND, no palpitations, no syncope. PULMONARY: No shortness of breath, no cough, no hemoptysis. GASTROINTESTINAL: As mentioned in HPI NEUROLOGICAL: No headaches, no weakness, no numbness. HEMATOLOGICAL: Denies any bleeding or petechiae. GENITOURINARY: Denies any burning micturition, frequency, or urgency. MUSCULOSKELETAL/RHEUMATOLOGICAL: Denies any joint pain, swelling, or any muscle pain. ENDOCRINE: Denies any polyuria or polydipsia. The rest of the 14-point review of systems is negative. Past Medical History Past Medical History: Cancer, Diabetes Mellitus, GERD/Reflux, Hearing Disorder / Deafness, Hyperlipidemia, Hypertension, Osteoarthritis (OA) Additional Past Medical History / Comment(s): dx. breast cancer left breast, new dx. colon cancer w/liver mets History of Any Multi-Drug Resistant Organisms: None Reported Past Surgical History: Back Surgery, Coronary Bypass/CABG, Heart Catheterization , Hysterectomy, Joint Replacement, Tonsillectomy Additional Past Surgical History / Comment(s): quad bypass 2006, left knee replaced Past Anesthesia/Blood Transfusion Reactions: No Reported Reaction Past Psychological History: Depression Smoking Status: Former smoker Past Alcohol Use History: None Reported Additional Past Alcohol Use History / Comment(s): quit smoking in the 70's, smoked for 15 yrs. Past Drug Use History: None Reported - Past Family History Mother Family Medical History: No Reported History Medications and Allergies Home Medications Medication Instructions Recorded Confirmed Type Metoprolol Tartrate [Lopressor] 25 mg PO DAILY 02/12/16 03/19/17 History PARoxetine [Paxil] 20 mg PO HS 02/12/16 03/19/17 History traZODone HCL [Desyrel] 100 mg PO HS 02/12/16 03/19/17 History Anastrozole [Arimidex] 1 mg PO DAILY 01/13/17 03/19/17 History Cetirizine HCl [Zyrtec] 10 mg PO DAILY 01/13/17 03/19/17 History Ranitidine HCl [Zantac] 150 mg PO HS 01/13/17 03/19/17 History Dexamethasone [Hexadrol] See Taper PO DAILY 03/13/17 03/19/17 History Diphenoxylate HCl/Atropine 2 tab PO QID PRN 03/13/17 03/19/17 History [Lomotil 2.5-0.025 mg Tablet] Insulin Glargine [Lantus] 5 unit SQ HS 03/13/17 03/19/17 History Lidocaine-Prilocaine Cream [Emla 1 applic TOPICAL DAILY PRN 03/13/17 03/19/17 History Cream 2.5%/2.5%] fentaNYL 25MCG/HR PATCH [Duragesic 25 mcg TRANSDERM Q48H 03/13/17 03/19/17 History 25MCG/HR] HYDROmorphone [Dilaudid] 1 tab PO Q3HR PRN 03/19/17 03/19/17 History Allergies Allergy/AdvReac Type Severity Reaction Status Date / Time ibuprofen Allergy Anaphylaxis Verified 03/19/17 20:58 Latex, Natural Rubber AdvReac rizzo skin Verified 03/19/17 20:58 Physical Exam Vitals: Vital Signs Temp Pulse Pulse Resp BP BP Pulse Ox 03/20/17 07:00 97.8 F 43 L 18 150/65 94 L 03/20/17 00:01 97.5 F L 44 L 16 149/64 93 L 03/19/17 22:03 97.7 F 53 L 16 132/60 96 03/19/17 19:32 97.1 F L 52 L 18 110/55 97 Intake and Output 03/19/17 03/20/17 03/20/17 22:59 06:59 14:59 Intake Total 590 100 Balance 590 100 Intake: Oral 590 100 Other: Voiding Method Toilet # Voids 2 Weight 65.317 kg 68 kg PHYSICAL EXAMINATION: GENERAL: The patient is alert and oriented x3, not in any acute distress. Well developed, well nourished. HEENT: Pupils are round and equally reacting to light. EOMI. No scleral icterus. No conjunctival pallor. Normocephalic, atraumatic. No pharyngeal erythema. No thyromegaly. CARDIOVASCULAR: S1 and S2 present. No murmurs, rubs, or gallops. PULMONARY: Chest is clear to auscultation, no wheezing or crackles. ABDOMEN: Soft, nondistended, normoactive bowel sounds. No palpable organomegaly. Diffuse tenderness MUSCULOSKELETAL: No joint swelling or deformity. EXTREMITIES: No cyanosis, clubbing, or pedal edema. NEUROLOGICAL: Gross neurological examination did not reveal any focal deficits. SKIN: No rashes. Results CBC & Chem 7: 03/19/17 20:25 03/19/17 20:25 Labs: Abnormal Lab Results - Last 24 Hours (Table) 03/19/17 03/19/17 03/19/17 Range/Units 20:25 20:25 21:30 RDW 30.2 H (11.5-15.5) % Lymphocytes # 0.5 L (1.0-4.8) k/uL Sodium 134 L (137-145) mmol/L BUN 20 H (7-17) mg/dL Glucose 221 H (74-99) mg/dL POC Glucose (mg/dL) (75-99) mg/dL Calcium 7.9 L (8.4-10.2) mg/dL Total Protein 4.4 L (6.3-8.2) g/dL Albumin 2.4 L (3.5-5.0) g/dL Urine Glucose (UA) 1+ H (Negative) Ur Leukocyte Esterase Small H (Negative) Hyaline Casts 4 H (0-2) /lpf Urine Mucus Rare H (None) /hpf 03/20/17 Range/Units 07:28 RDW (11.5-15.5) % Lymphocytes # (1.0-4.8) k/uL Sodium (137-145) mmol/L BUN (7-17) mg/dL Glucose (74-99) mg/dL POC Glucose (mg/dL) 191 H (75-99) mg/dL Calcium (8.4-10.2) mg/dL Total Protein (6.3-8.2) g/dL Albumin (3.5-5.0) g/dL Urine Glucose (UA) (Negative) Ur Leukocyte Esterase (Negative) Hyaline Casts (0-2) /lpf Urine Mucus (None) /hpf Microbiology - Last 24 Hours (Table) 03/19/17 21:30 Urine Culture - Preliminary Urine,Clean Catch Thrombosis Risk Factor Assmnt - Choose All That Apply Any of the Below Risk Factors Present?: Yes Each Factor Represents 1 point: Obesity (BMI >25) Other Risk Factors: Yes Each Risk Factor Represents 2 Points: Malignancy Each Risk Factor Represents 3 Points: Age 75 years or older Other congenital or acquired thrombophilia - If yes, enter type in comment: No Thrombosis Risk Factor Assessment Total Risk Factor Score: 6 Thrombosis Risk Factor Assessment Level: High Risk Assessment and Plan Plan: #1 #1 abdominal pain: Secondary to metastatic disease, pain management with increased the fentanyl continue with the Dilaudid for breakthrough pain. Will get oncology opinion regarding her metastatic disease and also will review her previous CAT scans. 2 diarrhea: Leading to dehydration and hyponatremia which is hypovolemic hyponatremia, patient will be continued on IV fluids at 100-1 25 mL/h and patient already had workup for diarrhea rule out infectious causes as an outpatient. Diarrhea is probably secondary to mucositis from cancer chemotherapy #3 generalized weakened deconditioning and weakness secondary to cancer cachexia , patient will be started on Marinol, PT or OT consultation. 4 hypervolemic hyponatremia #5 diabetes mellitus type 2: Patient will be started on home regimen monitor blood glucose. Hyperlipidemia 7 hypertension #8 cecal and colon cancer
[2017-03-20 11:33] VITALS: BMI 29.2
[2017-03-20 12:03] LABS: Anion Gap 3 mmol/L; Blood Urea Nitrogen 17 mg/dL (7-17); Calcium 7.5 mg/dL (8.4-10.2); Carbon Dioxide 29 mmol/L (22-30); Chloride 104 mmol/L (98-107); Glucose 144 mg/dL (74-99); Non-African American GFR(MDRD) >60 (>60 ml/min/1.73 sqM); Potassium 3.3 mmol/L (3.5-5.1); Sodium 136 mmol/L (137-145)
[2017-03-20] MEDS ORDERED: POTASSIUM CHLORIDE ER 20 MEQ TAB.ER PO STA (12:24)
[2017-03-20] MEDS: CHOLESTYRAMINE (WITH SUGAR) 4 GM PACKET PO SCH ×2 (14:27→17:46)
[2017-03-20 17:08] LABS: Glucose,Whole Blood 122 mg/dL (75-99)
[2017-03-20] MEDS: DRONABINOL 2.5 MG CAP PO SCH (17:39)
--- NOTE | 2017-03-20 19:41 | P.CONS ---
History of Present Illness - Reason for Consult Consult date: 03/20/17 cecal carcinoma Requesting physician: Blanca Wynn - Chief Complaint abd pain - History of Present Illness Ms Rhodes is a very pleasant female pt of Dr. 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 She had radiation and was placed on AI that she is on currently. In December of 2016 she was seen at [facility] for abd pain, diarrhea and wt. loss, US of abd showed large liver lesions-8.1 X 5.7cm and 8.6 X 6 cm, CT AP 01/09/17 showed large cecal mass, liver biopsy, path metastatic adenocarcinoma consistent with a colon primary, colonoscopy revealed large cecal mass but path was adenoma. Pt was started on Xeloda and avastin 02/04/17, she had significant toxicities form xeloda including diarrhea and neuropathy so that was stopped after completing almost 2 cycles, she has had 3 avastin treatments, last one 03/18. She presents with severe abd pain, periumbilical region, "15/10", pain meds at home were not adequate even after adjustment, she poor oral intake but denies vomiting, has a lot of flatus, she has pain during BM in the rectal area that subsides after BM, stools is formed, she denies fevers, SOB, cough, dysuria, hematuria, swelling in the legs. Review of Systems All systems: negative Constitutional: Reports as per HPI Past Medical History Past Medical History: Cancer, Diabetes Mellitus, GERD/Reflux, Hearing Disorder / Deafness, Hyperlipidemia, Hypertension, Osteoarthritis (OA) Additional Past Medical History / Comment(s): dx. breast cancer left breast, new dx. colon cancer w/liver mets History of Any Multi-Drug Resistant Organisms: None Reported Past Surgical History: Back Surgery, Coronary Bypass/CABG, Heart Catheterization , Hysterectomy, Joint Replacement, Tonsillectomy Additional Past Surgical History / Comment(s): quad bypass 2006, left knee replaced Past Anesthesia/Blood Transfusion Reactions: No Reported Reaction Past Psychological History: Depression Smoking Status: Former smoker Past Alcohol Use History: None Reported Additional Past Alcohol Use History / Comment(s): quit smoking in the 70's, smoked for 15 yrs. Past Drug Use History: None Reported - Past Family History Mother Family Medical History: No Reported History Medications and Allergies Home Medications Medication Instructions Recorded Confirmed Type Metoprolol Tartrate [Lopressor] 25 mg PO DAILY 02/12/16 03/19/17 History PARoxetine [Paxil] 20 mg PO HS 02/12/16 03/19/17 History traZODone HCL [Desyrel] 100 mg PO HS 02/12/16 03/19/17 History Anastrozole [Arimidex] 1 mg PO DAILY 01/13/17 03/19/17 History Cetirizine HCl [Zyrtec] 10 mg PO DAILY 01/13/17 03/19/17 History Ranitidine HCl [Zantac] 150 mg PO HS 01/13/17 03/19/17 History Dexamethasone [Hexadrol] See Taper PO DAILY 03/13/17 03/19/17 History Diphenoxylate HCl/Atropine 2 tab PO QID PRN 03/13/17 03/19/17 History [Lomotil 2.5-0.025 mg Tablet] Insulin Glargine [Lantus] 5 unit SQ HS 03/13/17 03/19/17 History Lidocaine-Prilocaine Cream [Emla 1 applic TOPICAL DAILY PRN 03/13/17 03/19/17 History Cream 2.5%/2.5%] fentaNYL 25MCG/HR PATCH [Duragesic 25 mcg TRANSDERM Q48H 03/13/17 03/19/17 History 25MCG/HR] HYDROmorphone [Dilaudid] 1 tab PO Q3HR PRN 03/19/17 03/19/17 History Allergies Allergy/AdvReac Type Severity Reaction Status Date / Time ibuprofen Allergy Anaphylaxis Verified 03/19/17 20:58 Latex, Natural Rubber AdvReac rizzo skin Verified 03/19/17 20:58 Physical Exam Vitals: Vital Signs Temp Pulse Pulse Resp BP BP Pulse Ox 03/20/17 15:00 98.1 F 52 L 18 156/65 96 03/20/17 08:00 54 L 03/20/17 07:00 97.8 F 43 L 18 150/65 94 L 03/20/17 00:01 97.5 F L 44 L 16 149/64 93 L 03/19/17 22:03 97.7 F 53 L 16 132/60 96 03/19/17 19:32 97.1 F L 52 L 18 110/55 97 Intake and Output 03/20/17 03/20/17 03/20/17 06:59 14:59 22:59 Intake Total 590 900 Balance 590 900 Intake: Intake, IV Titration 800 Amount Sodium Chloride 0.9% 1, 800 000 ml @ 100 mls/hr IV . Q10H [facility] Rx#:[id number] Oral 590 100 Other: Voiding Method Toilet Toilet Toilet # Voids 2 3 Weight 68 kg 68 kg Patient Weight 03/21/17 06:59 Weight 68 kg - Constitutional General appearance: cooperative, mild distress, obese - EENT Eyes: anicteric sclerae, EOMI, normal appearance ENT: normal oropharynx - Neck Neck: no lymphadenopathy - Respiratory Respiratory: bilateral: CTA - Cardiovascular Heart sounds: normal: S1 (bradycardia with extra beat), S2 leg Peripheral Edema: bilateral: None - Gastrointestinal General gastrointestinal: distended, normal bowel sounds, soft Localized gastrointestinal: tender: epigastric periumbilical, midline - Integumentary Integumentary: pale - Neurologic Neurologic: CNII-XII intact - Musculoskeletal Musculoskeletal: generalized weakness, strength equal bilaterally - Psychiatric Psychiatric: A&O x's 3, appropriate affect, intact judgment & insight Results CBC & Chem 7: 03/19/17 20:25 03/20/17 11:35 Labs: Abnormal Lab Results - Last 24 Hours (Table) 03/19/17 03/19/17 03/19/17 Range/Units 20:25 20:25 21:30 RDW 30.2 H (11.5-15.5) % Lymphocytes # 0.5 L (1.0-4.8) k/uL Sodium 134 L (137-145) mmol/L Potassium (3.5-5.1) mmol/L BUN 20 H (7-17) mg/dL Glucose 221 H (74-99) mg/dL POC Glucose (mg/dL) (75-99) mg/dL Calcium 7.9 L (8.4-10.2) mg/dL Total Protein 4.4 L (6.3-8.2) g/dL Albumin 2.4 L (3.5-5.0) g/dL Urine Glucose (UA) 1+ H (Negative) Ur Leukocyte Esterase Small H (Negative) Hyaline Casts 4 H (0-2) /lpf Urine Mucus Rare H (None) /hpf 03/20/17 03/20/17 03/20/17 Range/Units 07:28 11:04 11:35 RDW (11.5-15.5) % Lymphocytes # (1.0-4.8) k/uL Sodium 136 L (137-145) mmol/L Potassium 3.3 L (3.5-5.1) mmol/L BUN (7-17) mg/dL Glucose 144 H (74-99) mg/dL POC Glucose (mg/dL) 191 H 166 H (75-99) mg/dL Calcium 7.5 L (8.4-10.2) mg/dL Total Protein (6.3-8.2) g/dL Albumin (3.5-5.0) g/dL Urine Glucose (UA) (Negative) Ur Leukocyte Esterase (Negative) Hyaline Casts (0-2) /lpf Urine Mucus (None) /hpf 03/20/17 Range/Units 17:06 RDW (11.5-15.5) % Lymphocytes # (1.0-4.8) k/uL Sodium (137-145) mmol/L Potassium (3.5-5.1) mmol/L BUN (7-17) mg/dL Glucose (74-99) mg/dL POC Glucose (mg/dL) 122 H (75-99) mg/dL Calcium (8.4-10.2) mg/dL Total Protein (6.3-8.2) g/dL Albumin (3.5-5.0) g/dL Urine Glucose (UA) (Negative) Ur Leukocyte Esterase (Negative) Hyaline Casts (0-2) /lpf Urine Mucus (None) /hpf Microbiology - Last 24 Hours (Table) 03/19/17 21:30 Urine Culture - Preliminary Urine,Clean Catch Abdominal x-ray: report reviewed Assessment and Plan (1) Adenocarcinoma of cecum, stage 4b Narrative/Plan: Pt has not seen Dr. Phelan yet for results of her most recent imaging. Will review with Doctor and communicate results to pt when daughter is also available as there is evidence of disease progression. Status: Chronic (2) Abdominal pain Narrative/Plan: Agree with pain med titration for pt comfort. Abd xray report, no evidence of acute abdomen. Recommend clear liquid diet for now. Status: Acute
[2017-03-20] MEDS ORDERED: traZODone HCL 100 MG TAB PO SCH (21:00)
[2017-03-20 21:55] LABS: Glucose,Whole Blood 107 mg/dL (75-99)
[2017-03-20] MEDS: FAMOTIDINE 20 MG TAB PO SCH (22:33)
[2017-03-20] MEDS: INSULIN GLARGINE 100 UNIT/ML 10 ML VIAL SQ SCH (22:33)
[2017-03-20] MEDS: PARoxetine 20 MG TAB PO SCH (22:33)
[2017-03-20] MEDS: HYDROmorphone 2 MG TAB PO PRN (22:35)
[2017-03-21] MEDS: traZODone HCL 100 MG TAB PO SCH ×2 (00:36→20:51)
[2017-03-21 07:58] LABS: Glucose,Whole Blood 83 mg/dL (75-99)
[2017-03-21] MEDS: HYDROmorphone 2 MG TAB PO PRN ×3 (08:16→19:17)
[2017-03-21] MEDS: CHOLESTYRAMINE (WITH SUGAR) 4 GM PACKET PO SCH ×3 (08:17→16:41)
[2017-03-21] MEDS: SODIUM CHLORIDE 0.9% 1,000 ML IV SCH ×2 (08:17→15:54)
[2017-03-21] MEDS: ANASTROZOLE 1 MG TAB PO SCH (08:17)
[2017-03-21] MEDS: LORATADINE 10 MG TAB PO SCH (08:17)
[2017-03-21] MEDS: DRONABINOL 2.5 MG CAP PO SCH ×2 (08:19→17:26)
[2017-03-21] MEDS: HYDROmorphone 1 MG/ML 1 ML SYRINGE IV PRN ×3 (09:56→21:41)
--- NOTE | 2017-03-21 11:52 | P.PN ---
Subjective Patient is admitted for abdominal pain, secondary to metastatic colon cancer. Patient still has abdominal pain patient still has quite a bit of weakness pending evaluation by physical therapy and occupational therapy. Patient denied any fever, dysuria, nausea, vomiting continues to have abdominal pain, denied any focal weakness. Objective - Vital Signs Vital signs: Vital Signs Temp 98 F 03/21/17 07:00 Pulse 65 03/21/17 07:00 Resp 14 03/21/17 08:00 BP 126/78 03/21/17 07:00 Pulse Ox 98 03/21/17 07:00 Intake & Output 03/20/17 03/21/17 03/21/17 18:59 06:59 18:59 Intake Total 900 800 Balance 900 800 Weight 68 kg Intake: Intake, IV Titration 800 800 Amount Sodium Chloride 0.9% 1, 800 800 000 ml @ 100 mls/hr IV . Q10H [facility] Rx#:[id number] Oral 100 Other: Voiding Method Toilet Toilet Toilet # Voids 3 1 # Bowel Movements 1 - Exam PHYSICAL EXAMINATION: GENERAL: The patient is alert and oriented x3, not in any acute distress. Well developed, well nourished. HEENT: Pupils are round and equally reacting to light. EOMI. No scleral icterus. No conjunctival pallor. Normocephalic, atraumatic. No pharyngeal erythema. No thyromegaly. CARDIOVASCULAR: S1 and S2 present. No murmurs, rubs, or gallops. PULMONARY: Chest is clear to auscultation, no wheezing or crackles. ABDOMEN: Soft, nondistended, normoactive bowel sounds. No palpable organomegaly. Diffuse tenderness MUSCULOSKELETAL: No joint swelling or deformity. EXTREMITIES: No cyanosis, clubbing, or pedal edema. NEUROLOGICAL: Gross neurological examination did not reveal any focal deficits. SKIN: No rashes. - Labs CBC & Chem 7: 03/19/17 20:25 03/20/17 11:35 Labs: Abnormal Lab Results - Last 24 Hours (Table) 03/20/17 03/20/17 03/20/17 Range/Units 11:35 17:06 21:50 Sodium 136 L (137-145) mmol/L Potassium 3.3 L (3.5-5.1) mmol/L Glucose 144 H (74-99) mg/dL POC Glucose (mg/dL) 122 H 107 H (75-99) mg/dL Calcium 7.5 L (8.4-10.2) mg/dL Microbiology - Last 24 Hours (Table) 03/19/17 21:30 Urine Culture - Final Urine,Clean Catch Assessment and Plan Plan: #1 #1 abdominal pain: Secondary to metastatic disease, pain management with increased the fentanyl continue with the Dilaudid for breakthrough pain. Patient's fentanyl dose is being increased in PT and OT at a valid the patient 2 diarrhea: Leading to dehydration and hyponatremia which is hypovolemic hyponatremia, patient will be continued on IV fluids at 100-1 25 mL/h and patient already had workup for diarrhea rule out infectious causes as an outpatient. Diarrhea is probably secondary to mucositis from cancer chemotherapy. 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 4 hypervolemic hyponatremia: Improved #5 diabetes mellitus type 2: Patient will be started on home regimen monitor blood glucose. Hyperlipidemia 7 hypertension #8 cecal and colon cancer
[2017-03-21 12:54] LABS: Glucose,Whole Blood 73 mg/dL (75-99)
[2017-03-21 15:24] LABS: Anion Gap 5 mmol/L; Blood Urea Nitrogen 14 mg/dL (7-17); Calcium 7.3 mg/dL (8.4-10.2); Carbon Dioxide 26 mmol/L (22-30); Chloride 103 mmol/L (98-107); Glucose 98 mg/dL (74-99); Non-African American GFR(MDRD) >60 (>60 ml/min/1.73 sqM); Sodium 134 mmol/L (137-145)
[2017-03-21 15:45] LABS: Potassium 3.7 mmol/L (3.5-5.1)
[2017-03-21 18:07] LABS: Glucose,Whole Blood 141 mg/dL (75-99)
[2017-03-21 20:29] LABS: Glucose,Whole Blood 144 mg/dL (75-99)
[2017-03-21] MEDS: PARoxetine 20 MG TAB PO SCH (20:51)
[2017-03-21] MEDS: INSULIN GLARGINE 100 UNIT/ML 10 ML VIAL SQ SCH (20:51)
[2017-03-21] MEDS: FAMOTIDINE 20 MG TAB PO SCH (20:51)
[2017-03-22 05:47] LABS: Glucose,Whole Blood 165 mg/dL (75-99)
[2017-03-22 07:56] LABS: Glucose,Whole Blood 176 mg/dL (75-99)
[2017-03-22] MEDS: SODIUM CHLORIDE 0.9% 1,000 ML IV SCH ×3 (08:05→20:53)
--- NOTE | 2017-03-22 10:57 | P.PN ---
Subjective Patient is admitted for abdominal pain, secondary to metastatic colon cancer. Patient still has abdominal pain patient still has quite a bit of weakness pending evaluation by physical therapy and occupational therapy. 03/22/2017 Patient can use to have severe pain cardiology to evaluate the patient, hospice is being considered at this time. Which I believe is appropriate. Patient denied any fever, dysuria, nausea, vomiting continues to have abdominal pain, denied any focal weakness. Objective - Vital Signs Vital signs: Vital Signs Temp 97.9 F 03/22/17 07:00 Pulse 101 H 03/22/17 07:00 Resp 16 03/22/17 07:00 BP 104/68 03/22/17 07:00 Pulse Ox 96 03/22/17 07:00 Intake & Output 03/21/17 03/22/17 03/22/17 18:59 06:59 18:59 Intake Total 800 700 Balance 800 700 Intake: Intake, IV Titration 800 700 Amount Sodium Chloride 0.9% 1, 800 700 000 ml @ 100 mls/hr IV . Q10H [facility] Rx#:[id number] Other: Voiding Method Toilet Toilet # Voids 1 # Bowel Movements 1 - Exam PHYSICAL EXAMINATION: GENERAL: The patient is alert and oriented x3, not in any acute distress. Well developed, well nourished. Patient is severely lethargic. HEENT: Pupils are round and equally reacting to light. EOMI. No scleral icterus. No conjunctival pallor. Normocephalic, atraumatic. No pharyngeal erythema. No thyromegaly. CARDIOVASCULAR: S1 and S2 present. No murmurs, rubs, or gallops. PULMONARY: Chest is clear to auscultation, no wheezing or crackles. ABDOMEN: Soft, nondistended, normoactive bowel sounds. No palpable organomegaly. Diffuse tenderness MUSCULOSKELETAL: No joint swelling or deformity. EXTREMITIES: No cyanosis, clubbing, or pedal edema. NEUROLOGICAL: Gross neurological examination did not reveal any focal deficits. SKIN: No rashes. - Labs CBC & Chem 7: 03/19/17 20:25 03/21/17 14:40 Labs: Abnormal Lab Results - Last 24 Hours (Table) 03/21/17 03/21/17 03/21/17 Range/Units 12:51 14:40 18:00 Sodium 134 L (137-145) mmol/L POC Glucose (mg/dL) 73 L 141 H (75-99) mg/dL Calcium 7.3 L (8.4-10.2) mg/dL 03/21/17 03/22/17 03/22/17 Range/Units 20:24 05:45 07:25 Sodium (137-145) mmol/L POC Glucose (mg/dL) 144 H 165 H 176 H (75-99) mg/dL Calcium (8.4-10.2) mg/dL Assessment and Plan Plan: #1 #1 abdominal pain: Secondary to metastatic disease, pain management with increased the fentanyl continue with the Dilaudid for breakthrough pain. Patient pain is still not controlled. Hospice is being considered at this point of time. 2 diarrhea: Leading to dehydration and hyponatremia which is hypovolemic hyponatremia, patient will be continued on IV fluids at 100-1 25 mL/h and patient already had workup for diarrhea rule out infectious causes as an outpatient. Diarrhea is probably secondary to mucositis from cancer chemotherapy. 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 4 hypervolemic hyponatremia: Improved #5 diabetes mellitus type 2: Patient will be started on home regimen monitor blood glucose. Hyperlipidemia 7 hypertension #8 cecal and colon cancer 9Tachycardia and bradycardia syndrome syndrome or sick sinus syndrome: Cardiology at to evaluate the patient but patient may be hospice by them
[2017-03-22] MEDS: CHOLESTYRAMINE (WITH SUGAR) 4 GM PACKET PO SCH ×3 (11:21→12:52)
[2017-03-22] MEDS: LORATADINE 10 MG TAB PO SCH (11:21)
[2017-03-22] MEDS: HYDROmorphone 2 MG TAB PO PRN (11:48)
[2017-03-22] MEDS: ANASTROZOLE 1 MG TAB PO SCH (11:58)
[2017-03-22 12:04] LABS: Glucose,Whole Blood 121 mg/dL (75-99)
[2017-03-22] MEDS ORDERED: ALPRAZolam 0.25 MG TAB PO PRN (14:00)
[2017-03-22 17:37] LABS: Glucose,Whole Blood 119 mg/dL (75-99)
[2017-03-22 20:10] LABS: Glucose,Whole Blood 126 mg/dL (75-99)
[2017-03-22] MEDS: FAMOTIDINE 20 MG TAB PO SCH (20:52)
[2017-03-22] MEDS: PARoxetine 20 MG TAB PO SCH (20:52)
[2017-03-22] MEDS: traZODone HCL 100 MG TAB PO SCH (20:52)
[2017-03-22] MEDS: INSULIN GLARGINE 100 UNIT/ML 10 ML VIAL SQ SCH (20:59)
[2017-03-23] MEDS: SODIUM CHLORIDE 0.9% 1,000 ML IV SCH ×2 (06:56→16:03)
[2017-03-23] MEDS: LORATADINE 10 MG TAB PO SCH (06:56)
[2017-03-23] MEDS: CHOLESTYRAMINE (WITH SUGAR) 4 GM PACKET PO SCH ×3 (06:56→17:37)
[2017-03-23 07:46] LABS: Glucose,Whole Blood 72 mg/dL (75-99)
--- NOTE | 2017-03-23 08:11 | PN ---
CHIEF COMPLAINT: Abdominal pain. Veronica is seen today as a followup. She continues to have abdominal pain. She is tired. Her pain she rates as 8 out of 10 in severity. Partial relief with current pain medication regimen. She is very tired as well. No nausea or vomiting. She is passing gas and has bowel movement. No melena, hematochezia, hematuria, hemoptysis, hematemesis or epistaxis. Her medication in her electronic medical record was reviewed and discussed with nursing staff. On physical examination she is alert and oriented x3. She answers questions very appropriately. She does appear to be in pain. Her vital signs are temperature 97.9, pulse 89, respirations 16, blood pressure 104/68. HEENT: Normocephalic, atraumatic. NECK: Supple. CHEST: Coarse sounds bilaterally. Lungs are clear. Heart is regular. ABDOMEN: Soft, the liver is enlarged. There is tenderness in the right upper quadrant and right lower quadrant. However, the abdomen is soft, and bowel sounds are present. No ascites. EXTREMITIES: Reveals no edema. SKIN: No significant bruises. LABORATORY DATA: The last laboratory data revealed WBC 6.0, hemoglobin 12.6, hematocrit 39.6, platelets are 274. IMPRESSION: 1. 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 The patient could not tolerate ( ) which lead to significant diarrhea and hand-foot syndrome which lead to discontinuation of this medication about a week or so ago. 2. Abdominal pain related to her liver metastasis and large cecal mass. 3. History of breast carcinoma without any evidence of recurrence. RECOMMENDATIONS: 1. Continue the Fentanyl patch at current dose 50 mcg/h over the next 48 hours. If needed the dose could be further increased. 2. Will change the breakthrough medication to OxyContin. I will start with 5 mg every 4 hours. This could be increased to 10 or 15 mg as needed and as tolerated and if she is requiring frequent oxycodone for breakthrough pain then the next step would be to increase the Fentanyl dose. 3. The patient was on tapering dose of steroid in the outpatient setting and will put her back on lower dose Decadron and this should be weaned off over the next few days. 4. in regard to alf care and prognosis, overall prognosis is poor. The patient and her family are fully aware of that and they are in the process of considering hospice care and possibly at home, which I believe is very reasonable. MTDD
--- NOTE | 2017-03-23 08:11 | ECHOF ---
Referral Reason:new onset A. fib MEASUREMENTS -------- HEIGHT: 152.4 cm WEIGHT: 67.6 kg BP: 126/78 RVIDd: 2.6 cm (< 3.3) IVSd: 1.3 cm (0.6 - 1.1) LVIDd: 3.8 cm (3.9 - 5.3) LVPWd: 1.2 cm (0.6 - 1.1) IVSs: 1.5 cm LVIDs: 3.3 cm LVPWs: 1.9 cm LA Diam: 3.2 cm (2.7 - 3.8) LAESV Index (A-L): 20.84 ml/m Ao Diam: 3.3 cm (2.0 - 3.7) AV Cusp: 1.6 cm (1.5 - 2.6) MV EXCURSION: 12.690 mm (> 18.000) MV EF SLOPE: 80 mm/s (70 - 150) EPSS: 0.1 cm AV maxP.28 mmHg AV meanP.23 mmHg RAP: 5.00 mmHg RVSP: 27.49 mmHg FINDINGS -------- Atrial fibrillation. This was a technically adequate study. The left ventricular size is normal. There is mild concentric left ventricular hypertrophy. Overall left ventricular systolic function is low-normal with, an EF between 50 - 55 %. The right ventricle is normal in size and function. Normal LA size by volume 22+/-6 ml/m2. The right atrium is normal in size. There is mild aortic valve sclerosis. The mitral valve leaflets are mildly thickened. Mild mitral annular calcification present. There is trace mitral regurgitation. Mild tricuspid regurgitation present. Right ventricular systolic pressure is normal at < 35 mmHg. Trace/mild (physiologic) pulmonic regurgitation. The aortic root size is normal. IVC Not well visulized. There is no pericardial effusion. CONCLUSIONS -------- 1. Atrial fibrillation. 2. Mild mitral annular calcification present. 3. There is trace mitral regurgitation. 4. Mild tricuspid regurgitation present. 5. Right ventricular systolic pressure is normal at < 35 mmHg. 6. Trace/mild (physiologic) pulmonic regurgitation. 7. The aortic root size is normal. 8. IVC Not well visulized. 9. There is no pericardial effusion. 10. This was a technically adequate study. 11. The left ventricular size is normal. 12. There is mild concentric left ventricular hypertrophy. 13. Overall left ventricular systolic function is low-normal with, an EF between 50 - 55 %. 14. The right ventricle is normal in size and function. 15. Normal LA size by volume 22+/-6 ml/m2. 16. There is mild aortic valve sclerosis. 17. The mitral valve leaflets are mildly thickened. LABORER [employer]AK[employer]: Chelsey White RDCS
[2017-03-23 11:43] LABS: Glucose,Whole Blood 93 mg/dL (75-99)
--- NOTE | 2017-03-23 16:12 | P.PN ---
Subjective Date of service 03/23/2017. Personal being dictated for Dr. Jackson. Interval history:Patient is admitted for abdominal pain, secondary to metastatic colon cancer. Patient still has abdominal pain patient still has quite a bit of weakness pending evaluation by physical therapy and occupational therapy. 03/22/2017 Patient can use to have severe pain cardiology to evaluate the patient, hospice is being considered at this time. Which I believe is appropriate. Patient denied any fever, dysuria, nausea, vomiting continues to have abdominal pain, denied any focal weakness. 03/23/2017 family meeting today, patient has decided on home with hospice. Supplies been arranged for discharge home tomorrow. Recently medicated for abdominal pain. Remains confused, weak. Objective - Vital Signs Vital signs: Vital Signs Temp 98.3 F 03/23/17 15:00 Pulse 111 H 03/23/17 15:00 Resp 18 03/23/17 15:00 BP 112/84 03/23/17 15:00 Pulse Ox 92 L 03/23/17 15:00 Intake & Output 03/22/17 03/23/17 03/23/17 18:59 06:59 18:59 Intake Total 200 Output Total 1 Balance 200 -1 Weight 68 kg Intake: Oral 200 Output: Stool 1 Other: Voiding Method Toilet Bedpan Bedpan Diaper Diaper Incontinent Incontinent # Voids 2 1 - Exam GENERAL: The patient is alert and oriented x3, not in any acute distress. Well developed, well nourished. Patient is severely lethargic. HEENT: Pupils are round and equally reacting to light. EOMI. No scleral icterus. No conjunctival pallor. Normocephalic, atraumatic. No pharyngeal erythema. No thyromegaly. CARDIOVASCULAR: S1 and S2 present. No murmurs, rubs, or gallops. PULMONARY: Chest is clear to auscultation, no wheezing or crackles. ABDOMEN: Soft, nondistended, normoactive bowel sounds. No palpable organomegaly. Diffuse tenderness MUSCULOSKELETAL: No joint swelling or deformity. EXTREMITIES: No cyanosis, clubbing, or pedal edema. NEUROLOGICAL: Gross neurological examination did not reveal any focal deficits. SKIN: No rashes. - Labs CBC & Chem 7: 03/19/17 20:25 03/21/17 14:40 Labs: Abnormal Lab Results - Last 24 Hours (Table) 03/22/17 03/22/17 03/23/17 Range/Units 17:32 20:06 07:38 POC Glucose (mg/dL) 119 H 126 H 72 L (75-99) mg/dL Assessment and Plan Plan: #1 #1 abdominal pain: Secondary to metastatic 2 diarrhea: Leading to dehydration and hyponatremia which is hypovolemic hyponatremia, patient will be continued on IV fluids at 100-1 25 mL/h and patient already had workup for diarrhea rule out infectious causes as an outpatient. 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 Pain management as per oncology. As mentioned above family has decided to proceed with home with hospice. Supplies being arranged for discharge home tomorrow. Prognosis poor. The impression and plan of care has been dictated as directed. : I performed a H&P examination of this patient and discussed the same with the dictator. I agree with the dictator's note. Any additional findings/opinions/ etc. will be noted.
--- NOTE | 2017-03-23 16:22 | P.PN ---
Subjective Date of service 03/23/2017. Personal being dictated for Dr. Jackson. Interval history:Patient is admitted for abdominal pain, secondary to metastatic colon cancer. Patient still has abdominal pain patient still has quite a bit of weakness pending evaluation by physical therapy and occupational therapy. 03/22/2017 Patient can use to have severe pain cardiology to evaluate the patient, hospice is being considered at this time. Which I believe is appropriate. Patient denied any fever, dysuria, nausea, vomiting continues to have abdominal pain, denied any focal weakness. 03/23/2017 family meeting today, patient has decided on home with hospice. Supplies been arranged for discharge home tomorrow. Recently medicated for abdominal pain. Remains confused, weak. Objective - Vital Signs Vital signs: Vital Signs Temp 98.3 F 03/23/17 15:00 Pulse 111 H 03/23/17 15:00 Resp 18 03/23/17 15:00 BP 112/84 03/23/17 15:00 Pulse Ox 92 L 03/23/17 15:00 Intake & Output 03/22/17 03/23/17 03/23/17 18:59 06:59 18:59 Intake Total 200 Output Total 1 Balance 200 -1 Weight 68 kg Intake: Oral 200 Output: Stool 1 Other: Voiding Method Toilet Bedpan Bedpan Diaper Diaper Incontinent Incontinent # Voids 2 1 - Exam GENERAL: Alert with periods of Confusion, weak, severely lethargic. HEENT: Pupils are round and equally reacting to light. EOMI. No scleral icterus. No conjunctival pallor. Normocephalic, atraumatic. CARDIOVASCULAR: S1 and S2 present. No murmurs, rubs, or gallops. PULMONARY: Chest is clear to auscultation, no wheezing or crackles. ABDOMEN: Large, Soft, nondistended, normoactive bowel sounds. No palpable organomegaly. Diffuse tenderness MUSCULOSKELETAL: No joint swelling or deformity. EXTREMITIES: No cyanosis, clubbing, or pedal edema. NEUROLOGICAL: Gross neurological examination did not reveal any focal deficits. SKIN: No rashes. - Labs CBC & Chem 7: 03/19/17 20:25 03/21/17 14:40 Labs: Abnormal Lab Results - Last 24 Hours (Table) 03/22/17 03/22/17 03/23/17 Range/Units 17:32 20:06 07:38 POC Glucose (mg/dL) 119 H 126 H 72 L (75-99) mg/dL Assessment and Plan Plan: #1 #1 abdominal pain: Secondary to metastatic 2 diarrhea: Leading to dehydration and hyponatremia which is hypovolemic hyponatremia, patient will be continued on IV fluids at 100-1 25 mL/h and patient already had workup for diarrhea rule out infectious causes as an outpatient. 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 Pain management as per oncology. As mentioned above family has decided to proceed with home with hospice. Supplies being arranged for discharge home tomorrow. Prognosis poor. The impression and plan of care has been dictated as directed. : I performed a H&P examination of this patient and discussed the same with the dictator. I agree with the dictator's note. Any additional findings/opinions/ etc. will be noted.
[2017-03-23 17:19] LABS: Glucose,Whole Blood 117 mg/dL (75-99)
[2017-03-23 20:14] LABS: Glucose,Whole Blood 134 mg/dL (75-99)
[2017-03-23] MEDS: INSULIN GLARGINE 100 UNIT/ML 10 ML VIAL SQ SCH (22:03)
[2017-03-23] MEDS: traZODone HCL 100 MG TAB PO SCH (22:04)
[2017-03-23] MEDS: PARoxetine 20 MG TAB PO SCH (22:04)
[2017-03-23] MEDS: FAMOTIDINE 20 MG TAB PO SCH (22:14)
[2017-03-23 23:35] VITALS: RESP 16
[2017-03-24 07:31] LABS: Glucose,Whole Blood 71 mg/dL (75-99)
[2017-03-24 08:23] VITALS: BP 108/70; PULSE 80; TEMP 97.7
[2017-03-24] MEDS: LORATADINE 10 MG TAB PO SCH (09:08)
[2017-03-24] MEDS: CHOLESTYRAMINE (WITH SUGAR) 4 GM PACKET PO SCH (09:08)
[2017-03-24] MEDS ORDERED: ARTIFICIAL TEARS OINTMENT 3.5 GM TUBE BOTH EYES PRN (10:27)
[2017-03-24 10:47] LABS: Glucose,Whole Blood 75 mg/dL (75-99)
[2017-03-24 11:50] LABS: Glucose,Whole Blood 121 mg/dL (75-99)
== END 2017-03-24 13:03 | disposition hospice, home (50) | DRG 948 ==
LOC: EC 19:28 → 5ONC 22:13 → OBSVTOIN 03-20 09:06
PROVIDERS: ADMIT Internal Medicine; ATTEND Internal Medicine
DX: G89.3 Neoplasm related pain (acute) (chronic) (principal); C78.7 Secondary malignant neoplasm of liver and intrahepatic bile duct; C18.0 Malignant neoplasm of cecum; E87.1 Hypo-osmolality and hyponatremia; C20 Malignant neoplasm of rectum; K92.81 Gastrointestinal mucositis (ulcerative); R64 Cachexia; E11.65 Type 2 diabetes mellitus with hyperglycemia; I49.5 Sick sinus syndrome; I48.91 Unspecified atrial fibrillation; E86.0 Dehydration; I10 Essential (primary) hypertension; F32.9 Major depressive disorder, single episode, unspecified; E78.5 Hyperlipidemia, unspecified; H91.90 Unspecified hearing loss, unspecified ear; K21.9 Gastro-esophageal reflux disease without esophagitis; T45.1X5A Adverse effect of antineoplastic and immunosuppressive drugs, initial encounter; M19.90 Unspecified osteoarthritis, unspecified site; E86.1 Hypovolemia; E66.9 Obesity, unspecified; Z79.4 Long term (current) use of insulin; Z79.811 Long term (current) use of aromatase inhibitors; Z79.899 Other long term (current) drug therapy; Z85.3 Personal history of malignant neoplasm of breast; Z87.891 Personal history of nicotine dependence; Z95.1 Presence of aortocoronary bypass graft; Z88.6 Allergy status to analgesic agent; Z91.040 Latex allergy status; Z66 Do not resuscitate; Z96.652 Presence of left artificial knee joint; Y92.9 Unspecified place or not applicable
CPT/HCPCS: 36415; 74020; 80048; 80053; 81001; 83735; 84100; 85025; 87086; 93005; 93306; 96361; 96374; 96375; 96376; 99285